=== PATIENT | male | born 1955 | race Caucasian/White ===

== ENCOUNTER 2025-06-12 10:59 | Emergency (ER) | payer MEDICARE, OTHER, SELFPAY ==
[2025-06-12 11:04] VITALS: BP 127/85
[2025-06-12 11:06] VITALS: BP 127/85
[2025-06-12 11:57] LABS: Hematocrit 38.2 % (39.0-52.0); Hemoglobin 12.9 g/dL (13.0-18.0); Mean Corp Hgb Conc. 33.8 g/dL (33.0-37.0); Mean Corpuscular Volume 97.2 fL (80.0-94.0); Nucleated Red Blood Cells % 0 % (-); Platelet Count 245 10^3/uL (130-400); Red Cell Dist. Width 12.8 % (11.5-14.5)
[2025-06-12 12:16] LABS: ALT (SGPT) 26 U/L (0-50); AST (SGOT) 27 U/L (17-59); Albumin 4.6 g/dl (3.5-5.0); Alkaline Phosphatase 75 U/L (38-126); Blood Urea Nitrogen 21 mg/dl (9-20); Calcium 9.5 mg/dl (8.4-10.2); Carbon Dioxide 26 mmol/L (22-30); Chloride 103 mmol/L (98-107); Glucose 117 mg/dl (70-99); Potassium 4.1 mmol/L (3.5-5.1); Sodium 138 mmol/L (135-145); Total Protein 7.2 g/dl (6.3-8.2); eGFR > 60.00
[2025-06-12 12:19] VITALS: BP 130/72
[2025-06-12 12:21] VITALS: BP 144/81
[2025-06-12 13:17] VITALS: BP 171/78
--- NOTE | 2025-06-12 13:51 | ED.GENMED ---
History of Present Illness
General
Chief Complaint: Breathing Problem
Source: patient and ambulance crew
Exam Limitations: none
Time Seen by Provider: 06/12/25 11:08
Nursing documentation reviewed up to this point in time: agreed with
History of Present Illness
History of Present Illness:
69-year-old male with history of depression, substance abuse,'s PTSD, SI, ADHD, TBI, HTN, HLD, hep C, BPH presents via EMS who states they [facility]. Apparently the patient called the [facility] personnel and was on the phone talking
with, sounding confused and agitated so while they were talking to him they called EMS to go to the patient's home to take him to the nearest healthcare facility. EMS states that when they got to his home he was outside waiting, they did not go
into his home. They said he was on the phone with the [facility] complaining about shortness of breath and wanting to come to the VA. VA personnel told them he seems confused
He told EMS he has a roommate/caregiver that left town today to visit someone but should be back tonight.
Patient presents stating he wants to go to the [place] [facility]. When asked about his shortness of breath, he states it's just from anxiety and he is refusing and xray 'I don't need that, I need to get to the [facility].'
He denies chest pain, abd pain, n/v/d/c.
Past History
Past History
ED Past Medical History: HTN, Hypercholesterolemia, Psychiatric, Other (Hep C) and Other (TBI, PTSD, ADHD, depression)
ED Past Surgical History: None
Social History
Tobacco: Non-smoker
Alcohol: None
Drug: None and Other
Personal:
Living: with family
Employment: Employed
Review of Systems
Review of Systems
Allergies reviewed?: Yes
All Other Systems: ROS reviewed and negative except as documented in HPI and ROS
Constitutional: Denies fever
Respiratory: Denies trouble breathing ('It's my anxiety')
Cardiac: Denies chest pain
ABD/GI: Denies abdominal pain, nausea, vomiting, diarrhea or constipated
: Denies dysuria or difficulty voiding
Musculoskeletal: Reports no symptoms
Skin: Reports no symptoms
Neurological: Reports no symptoms
Psychiatric: Reports anxiety; Denies suicidal
Phy Exam
Physical Exam
Physical Exam:
GENERAL: No acute distress. A&Ox3.
CONSTITUTIONAL: Afebrile.
EYES: clear, conjunctivae normal
ENMT: moist mucus membranes, Pharynx nl
RESPIRATORY: Regular respirations, nonlabored, lungs clear.
CARDIOVASCULAR: Regular rate and rhythm, no murmurs, no rubs.
GI: Soft, nontender, normal BS
MUSCULOSKELETAL: Moves with ease. Well perfused.
SKIN: Warm, dry, pink
PSYCH: Anxious, mildly agitated mood and affect. Well kept, interactive, constantly on his phone poking hard trying to reach multiple people associated with the [facility]
NEUROLOGIC: Awake, alert and oriented. No focal neurological deficits
Scores
Heart Failure Risk
Heart Failure Risk Score: Not Applicable
Course
Orders/Labs/Results
Orders:
Orders
06/12/25 11:06
Electrocardiogram (*1) Urgent
Reason for Study: Shortness of Breath
EKG- Treatment ONCE
06/12/25 11:23
Crisis Consult Urgent
Reason for Consult: PTSD, anxiety, confusion
06/12/25 11:39
CMP [Comprehensive Metabolic Panel] Urgent
Complete Blood Count/With Diff Urgent
Abnormal Lab Results
06/12/25
11:39
WBC 4.4 L 10^3/uL
(4.8-10.8)
RBC 3.93 L 10^6/uL
(4.70-6.10)
Hgb 12.9 L g/dL
(13.0-18.0)
Hct 38.2 L %
(39.0-52.0)
MCV 97.2 H fL
(80.0-94.0)
MCH 32.8 H pg
(27.0-31.0)
BUN 21 H mg/dl
(9-20)
Glucose 117 H mg/dl
(70-99)
06/12/25 11:39
06/12/25 11:39
Vital Signs
Initial and Last Documented VS:
Initial Vital Signs
Pulse Resp Pulse Ox
94 18 98
06/12/25 11:01 06/12/25 11:01 06/12/25 11:01
Last Documented Vital Signs
Pulse Resp BP Pulse Ox
83 17 134/84 98
06/12/25 14:15 06/12/25 14:15 06/12/25 14:00 06/12/25 13:53
MDM/Problems Addressed
Differential Diagnosis Includes:
anxiety
MDM/Problems Addressed:
69-year-old male with history of depression, substance abuse,'s PTSD, SI, ADHD, TBI, HTN, HLD, hep C, BPH presents via EMS who states they were [facility] by the [facility]. Apparently the patient called the [facility] personnel and was on the phone talking
with, sounding confused and agitated so while they were talking to him they called EMS to go to the patient's home to take him to the nearest healthcare facility. EMS states that when they got to his home he was outside waiting, they did not go
into his home. They said he was on the phone with the [facility] complaining about shortness of breath and wanting to come to the VA. VA personnel told them he seems confused
He told EMS he has a roommate/caregiver that left town today to visit someone but should be back tonight.
Patient presents stating he wants to go to the [place] [facility]. When asked about his shortness of breath, he states it's just from anxiety and he is refusing and xray 'I don't need that, I need to get to the [facility].' Denies SI.
He denies chest pain, abd pain, n/v/d/c.
CBC, CMP with no clinically significant abnormality.
EKG sinus rhythm with occasional PVCs, heart rate 89
[facility]. He states they cannot provide transportation for him. He will contact their Transfer Dept and have them contact me
Patient evaluated by Latesha from crisis found to be confused, able to go to the [place], he could tell her his meds, was a poor historian, he did not want to talk for any more than he did not want a doctor she states he is not suicidal I have been in to see
the patient numerous times during his stay here, he is constantly on the phone trying to reach somebody from the [place].
And this last time I was in there he was talking to his wounded warrior counselor who said there is nothing he can do for the patient. The main problem seems to be that the patient is adamant about going to the [place] [facility] but does not have a ride.
While his [facility] warrior counselor is on the phone he admits that he knows how to call for an Uber but he wants a ride that he does not have to pay for, I explained to him that he is medically cleared and I am going to discharge him, I will provide
him with the address for the [place] on [facility] in [place], I called there and spoke with someone who said he is welcome to come down there and be seen in their ER.
Never heard back from the Transport Dept.
I spoke with a gentleman from the office of community care who recommended he come to the [place], they cannot provide transportation.
His 24-hour 7-day week caregiver left this morning to go visit someone and will be home tonight. I suggested she give him a ride to the [place] [facility] but he does not want to wait that long. He is mildly agitated but totally alert and oriented and
becoming more demanding. I offered to call him an Uber, he he refused.
I went in the room again to discharge him and he again had his wounded warrior counselor on the phone who was encouraging pt to call Uber
Again, denies feeling suicidal
He knows how to call Uber himself. He is stable for discharge
*Pulse Oximetry
SaO2: 98
Oxygen Mode of Delivery: Room air
Patient hypoxic: no
*Critical Care Note
Total Time (30-74mins, 75-104mins- exclusive of procedures): Not Applicable
ED Attending Note
-
Portions of this chart may have been created with voice recognition software.� Occasional wrong word or��sound alike� substitutions may have occurred due to the inherent limitations of voice recognition software.
Discharge Plan
Departure
Patient Disposition: Home (Routine Discharge)
Date of Disposition: 06/12/25
Time of Disposition: 13:59
Patient with high blood pressure during this ER visit?: No
Condition: Fair
Discharge Problem:
Anxiety
Instructions: Anxiety in adults - ED (DC)
Prescriptions:
No Action
tamsulosin 0.4 MG capsule
0.4 mg PO QPM
albuterol sulfate 1 PUFF HFA aerosol inhaler
2 puff inhalation R Q6HPRN PRN (Reason: shortness of breath)
atorvastatin 40 mg Tablet
40 mg PO QPM
trazodone 50 mg Tablet
50 mg PO HS
trazodone 50 mg Tablet
50 mg PO HSPRN PRN (Reason: sleep)
quetiapine 200 mg Tablet
200 mg PO HS
omeprazole 40 mg Capsule,Delayed Release(Dr/Ec)
40 mg PO DAILY
lorazepam 0.5 mg Tablet
0.25 mg PO DAILY
lorazepam 0.5 mg Tablet
0.5 mg PO HS
valsartan 320 mg Tablet
160 mg PO QPM
Patient Comments:
06/12/2025: Pt states he's been taking 200-210mg due to his blood pressure being in the 'cherelle zone'
carboxymethylcell-glycerin(PF) 0.5-0.9 % Dropperette
1 drp ophthalmic (eye) QIDPRN PRN (Reason: dry eyes)
dextroamphetamine sulfate 15 mg Tablet
60 mg PO DAILY
dupilumab 300 mg/2 mL Syringe
300 mg SC Q2W
Referrals:
Maico Solis MD [Family Provider, Internal Medicine]
Activity Restrictions/Additional Instructions:
As we discussed, I spoke with someone at the office of community care at the [facility] ext [phone] [place] [address] [id number]
They are willing to see you in their [facility]. They cannot provide transportation.
You can wait until your caregiver gets home tonight and she can take you or you can call an Uber now to get a ride.
You are medically cleared to go.
Interventions
Interventions:
*Risk Screen - Suicide Last Done: 06/12/25 11:07
*General Assessment Last Done: 06/12/25 11:07
*Neglect/Abuse Screening Last Done: 06/12/25 11:07
*ED- Fall Risk Assessment Last Done: 06/12/25 11:07
*ED COVID-19 Vaccine History Last Done: 06/12/25 11:07
*ED Influenza Vaccine History Last Done: 06/12/25 11:07
*Nursing Disposition Last Done: 06/12/25 14:42
ED- Cardiac Assessment Last Done: 06/12/25 11:11
ED- Pulmonary Assessment Last Done: 06/12/25 11:11
Discharge Date and Time
Discharge Date/Time: 06/12/25 14:42
Print Language: PAPUA [place]
[2025-06-12 14:00] VITALS: BP 134/84
== END 2025-06-12 14:42 | disposition home or self-care (01) ==
LOC: EMR 10:59
PROVIDERS: Registered Nurse; EMERGENCY PHYSICIAN Emergency Medicine; FAMILY PHYSICIAN Internal Medicine
DX: F41.9 Anxiety disorder, unspecified (principal); F32.A Depression, unspecified; I10 Essential (primary) hypertension; E78.00 Pure hypercholesterolemia, unspecified; Z87.820 Personal history of traumatic brain injury
CPT/HCPCS: 99283; 80053; 85025; 93005

== ENCOUNTER 2025-06-22 23:05 | Emergency (ER) | payer MEDICARE, OTHER, SELFPAY ==
[2025-06-22 23:30] VITALS: BP 121/85
[2025-06-23] MEDS: ATIVAN 1 MG PO (00:56)
[2025-06-23 03:14] LABS: Hematocrit 33.2 % (39.0-52.0); Hemoglobin 11.3 g/dL (13.0-18.0); Mean Corp Hgb Conc. 34.0 g/dL (33.0-37.0); Mean Corpuscular Volume 93.3 fL (80.0-94.0); Nucleated Red Blood Cells % 0 % (-); Platelet Count 235 10^3/uL (130-400); Red Cell Dist. Width 12.6 % (11.5-14.5)
[2025-06-23] MEDS: ATIVAN 0.5 MG PO (03:16)
[2025-06-23 03:28] LABS: ALT (SGPT) 24 U/L (0-50); AST (SGOT) 27 U/L (17-59); Albumin 4.1 g/dl (3.5-5.0); Alkaline Phosphatase 67 U/L (38-126); Blood Urea Nitrogen 21 mg/dl (9-20); Calcium 9.9 mg/dl (8.4-10.2); Carbon Dioxide 30 mmol/L (22-30); Chloride 102 mmol/L (98-107); Glucose 105 mg/dl (70-99); Potassium 4.1 mmol/L (3.5-5.1); Sodium 142 mmol/L (135-145); Total Protein 6.5 g/dl (6.3-8.2); eGFR > 60.00
[2025-06-23] MEDS: TYLENOL 650 MG PO (04:29)
--- NOTE | 2025-06-23 06:35 | ED.GENMED ---
History of Present Illness
<Cuba Cai, DO - Last Filed: 06/23/25 06:42>
General
Chief Complaint: Psychiatric Problem
Source: patient
Exam Limitations: clinical condition (Patient is reluctant to discuss his care.)
Time Seen by Provider: 06/22/25 23:46
Nursing documentation reviewed up to this point in time: agreed with
History of Present Illness
History of Present Illness:
Note:
CHIEF COMPLAINT(S)
The patient presents with anxiety and agitation, requesting medication for these symptoms.
HISTORY OF PRESENT ILLNESS
The patient is a 69-year-old male with a history of anxiety. During the visit, the patient expressed significant distress, stating, 'All I hear is what you cant give me in this freaking house.' The patient has been active, frequently getting out of
bed and expressing a need to use the restroom, frustrated by the lack of a urinal, saying, 'I need to go to the bathroom because you wont give me a freaking urn.' The patient requests to be transferred to a [place] facility, showing a preference for
being admitted to a hospital. The patient mentioned taking lorazepam for anxiety in the past and requested a stronger medication, specifically aripiprazole.
PHYSICAL EXAM
General: The patient is alert and exhibits agitation.
Psychiatric: The patient displays significant anxiety and agitation; requests medication for management.
PROBLEM LIST
Acute Problems:
1. Anxiety and agitation
PLAN
1. Administer a single dose of aripiprazole if the patient remains in bed, as discussed for anxiety management.
2. Continue to ensure the patients safety and address his requests within the constraints of the current facility.
DIFFERENTIAL DIAGNOSIS
The Differential Diagnosis includes, in no particular order and is not limited to:
1. Generalized anxiety disorder/manic episode
2. Panic disorder
3. Adjustment disorder with anxiety
4. Substance-induced anxiety disorder
5. Major depressive disorder with anxious distress
6. Acute stress disorder
7. Hyperthyroidism
8. Delirium
9. Social anxiety disorder
10. Post-traumatic stress disorder (PTSD)
Disposition:
SUMMARY OF ENCOUNTER
A 69-year-old male presented with a manic episode and requested to be transferred to a [place] psychiatric facility. The patient expressed no suicidal or homicidal ideation, intent, or plan. A crisis team evaluated him, and [facility] was [facility] However, the [place] cannot accept admissions over the weekend. A psychiatry consultation was requested for further evaluation.
EMERGENCY TREATMENTS ADMINISTERED
The patient received a dose of lorazepam approximately an hour before being documented as resting comfortably.
MANAGEMENT OF THE PATIENTS CARE WAS DISCUSSED WITH
Consultation with Dr. Delgadillo in psychiatry was requested.
PLAN
Monitor the patients response to lorazepam to ensure comfort and stability. Follow up with psychiatric evaluation and consider options for transfer to [facility] facility after the weekend.
MEDICATION RECONCILIATION
A dose of lorazepam was administered in the emergency department.
MEDICAL DECISION MAKING
-Complexity of Data Reviewed: Chronic conditions affecting care include anxiety. Differential diagnosis includes generalized anxiety disorder, panic disorder, adjustment disorder with anxiety, substance-induced anxiety disorder, major depressive
disorder with anxious distress, acute stress disorder, hyperthyroidism, delirium, social anxiety disorder, and post-traumatic stress disorder (PTSD).
-Data:
Category 3
Discussion of management with Dr. Delgadillo in psychiatry and crisis team evaluation of the patients current status and potential transfer options.
DIAGNOSIS
Anxiety disorder (F41.9)
Past History
<Cuba Cai, DO - Last Filed: 06/23/25 06:42>
Past History
ED Past Medical History: HTN, Hypercholesterolemia, Psychiatric, Other (Hep C) and Other (TBI, PTSD, ADHD, depression)
ED Past Surgical History: None
Social History
Tobacco: Non-smoker
Alcohol: None
Drug: None and Other
Personal:
Living: with family
Employment: Employed
Course
<Cuba Cai, DO - Last Filed: 06/23/25 06:42>
Orders/Labs/Results
Orders:
Orders
06/22/25 23:22
Crisis Consult Urgent
Reason for Consult: manic
06/23/25 00:41
Lorazepam [Ativan] 1 mg PO NOW STA
06/23/25 02:56
EKG [Electrocardiogram (*1)] Urgent
Reason for Study: Other
Other Reason for Exam: needed for placement
EKG- Treatment ONCE
06/23/25 02:57
Alcohol Urgent
Complete Blood Count/With Diff Urgent
Comprehensive Metabolic Panel Urgent
06/23/25 03:15
Lorazepam [Ativan] 0.5 mg .ROUTE .STK-MED ONE
06/23/25 03:16
Lorazepam [Ativan] 0.5 mg PO NOW STA
06/23/25 04:28
Acetaminophen [Tylenol] 650 mg .ROUTE .STK-MED ONE
Acetaminophen [Tylenol] 650 mg PO NOW STA
06/23/25 06:35
Consult Notification Routine
Specialty to Notify: Psychiatry
PSYCHIATRY CONSULT Urgent
Consulting Provider: Wale Roberto
Was physician already notified: No
Reason for consult: manic episode
Abnormal Lab Results
06/23/25
02:57
RBC 3.56 L 10^6/uL
(4.70-6.10)
Hgb 11.3 L g/dL
(13.0-18.0)
Hct 33.2 L %
(39.0-52.0)
MCH 31.7 H pg
(27.0-31.0)
Absolute Monos (auto) 1.0 H 10^3/uL
(0.1-0.6)
Monocytes % 13.7 H %
(1.7-9.3)
BUN 21 H mg/dl
(9-20)
Glucose 105 H mg/dl
(70-99)
06/23/25 02:57
06/23/25 02:57
Vital Signs
Initial and Last Documented VS:
Initial Vital Signs
Temp Pulse Resp BP Pulse Ox
97.9 F 99 18 121/85 98
06/22/25 23:30 06/22/25 23:30 06/22/25 23:30 06/22/25 23:30 06/22/25 23:30
Last Documented Vital Signs
Temp Pulse Resp BP Pulse Ox
97.9 F 99 18 121/85 98
06/22/25 23:30 06/22/25 23:30 06/22/25 23:30 06/22/25 23:30 06/23/25 06:40
<Sugey Valles DO - Last Filed: 06/23/25 09:19>
Orders/Labs/Results
Orders:
Orders
06/22/25 23:22
Crisis Consult Urgent
Reason for Consult: manic
06/23/25 00:41
Lorazepam [Ativan] 1 mg PO NOW STA
06/23/25 02:56
EKG [Electrocardiogram (*1)] Urgent
Reason for Study: Other
Other Reason for Exam: needed for placement
EKG- Treatment ONCE
06/23/25 02:57
Alcohol Urgent
Complete Blood Count/With Diff Urgent
Comprehensive Metabolic Panel Urgent
06/23/25 03:15
Lorazepam [Ativan] 0.5 mg .ROUTE .STK-MED ONE
06/23/25 03:16
Lorazepam [Ativan] 0.5 mg PO NOW STA
06/23/25 04:28
Acetaminophen [Tylenol] 650 mg .ROUTE .STK-MED ONE
Acetaminophen [Tylenol] 650 mg PO NOW STA
06/23/25 06:35
Consult Notification Routine
Specialty to Notify: Psychiatry
PSYCHIATRY CONSULT Urgent
Consulting Provider: Wale Roberto
Was physician already notified: No
Reason for consult: manic episode
Abnormal Lab Results
06/23/25
02:57
RBC 3.56 L 10^6/uL
(4.70-6.10)
Hgb 11.3 L g/dL
(13.0-18.0)
Hct 33.2 L %
(39.0-52.0)
MCH 31.7 H pg
(27.0-31.0)
Absolute Monos (auto) 1.0 H 10^3/uL
(0.1-0.6)
Monocytes % 13.7 H %
(1.7-9.3)
BUN 21 H mg/dl
(9-20)
Glucose 105 H mg/dl
(70-99)
06/23/25 02:57
06/23/25 02:57
Vital Signs
Initial and Last Documented VS:
Initial Vital Signs
Temp Pulse Resp BP Pulse Ox
97.9 F 99 18 121/85 98
06/22/25 23:30 06/22/25 23:30 06/22/25 23:30 06/22/25 23:30 06/22/25 23:30
Last Documented Vital Signs
Temp Pulse Resp BP Pulse Ox
97.9 F 99 18 121/85 98
06/22/25 23:30 06/22/25 23:30 06/22/25 23:30 06/22/25 23:30 06/23/25 06:40
<Cuba Cai, DO - Last Filed: 06/23/25 06:42>
*Pulse Oximetry
SaO2: 98
Oxygen Mode of Delivery: Room air
Patient hypoxic: no
*Critical Care Note
Total Time (30-74mins, 75-104mins- exclusive of procedures): Not Applicable
<Sugey Valles DO - Last Filed: 06/23/25 09:19>
Update Note
Update Note:
Attending signout note (Sugey Valles DO)
07:30 -patient seen and evaluated by evening physician, 69-year-old male with history of anxiety presenting for paranoia and kika. Patient is currently under 201, no indication for 302, hemodynamically stable. Crisis has seen and evaluated
patient initially, [facility], however no [facility] to the [facility] available until tomorrow. Patient without suicidal or homicidal ideations. Pending psychiatric evaluation.
09:00 - Crisis went back to evaluate patient and he would now like to go home which is reasonable. Does not presently appear to be a threat to himself or others. Stable for outpatient
ED Attending Note
<Cuba Cai DO - Last Filed: 06/23/25 06:42>
-
Portions of this chart may have been created with voice recognition software.� Occasional wrong word or��sound alike� substitutions may have occurred due to the inherent limitations of voice recognition software.
Discharge Plan
Departure
Patient Disposition: Psych Facility
Date of Disposition: 06/23/25
Time of Disposition: 06:38
Patient Status:: 201
Condition: Good
Discharge Problem:
Manic episode, Anxiety
Prescriptions:
No Action
tamsulosin 0.4 MG capsule
0.4 mg PO QPM
albuterol sulfate 1 PUFF HFA aerosol inhaler
2 puff inhalation R Q6HPRN PRN (Reason: shortness of breath)
atorvastatin 40 mg Tablet
40 mg PO QPM
trazodone 50 mg Tablet
50 mg PO HS
trazodone 50 mg Tablet
50 mg PO HSPRN PRN (Reason: sleep)
quetiapine 200 mg Tablet
200 mg PO HS
omeprazole 40 mg Capsule,Delayed Release(Dr/Ec)
40 mg PO DAILY
lorazepam 0.5 mg Tablet
0.25 mg PO DAILY
lorazepam 0.5 mg Tablet
0.5 mg PO HS
valsartan 320 mg Tablet
160 mg PO QPM
Patient Comments:
06/12/2025: Pt states he's been taking 200-210mg due to his blood pressure being in the 'cherelle zone'
carboxymethylcell-glycerin(PF) 0.5-0.9 % Dropperette
1 drp ophthalmic (eye) QIDPRN PRN (Reason: dry eyes)
dextroamphetamine sulfate 15 mg Tablet
60 mg PO DAILY
dupilumab 300 mg/2 mL Syringe
300 mg SC Q2W
Referrals:
Maico Solis MD [Family Provider, Internal Medicine]
Interventions
Interventions:
*Risk Screen - Suicide Last Done: 06/22/25 23:15
*General Assessment Last Done: 06/22/25 23:15
*Neglect/Abuse Screening Last Done: 06/22/25 23:15
*ED- Fall Risk Assessment Last Done: 06/22/25 23:15
*ED COVID-19 Vaccine History Last Done: 06/22/25 23:15
*ED Influenza Vaccine History Last Done: 06/22/25 23:15
ED-Psychological Assessment Last Done: 06/22/25 23:15
Discharge Date and Time
Print Language: FAROESE
== END 2025-06-23 10:15 | disposition home or self-care (01) ==
LOC: EMR 23:05
PROVIDERS: CONSULT PHYSICIAN Psychiatry & Neurology Psychiatry; EMERGENCY PHYSICIAN Student in an Organized Health Care Education/Training Program; FAMILY PHYSICIAN Internal Medicine
DX: F30.9 Manic episode, unspecified (principal); F41.9 Anxiety disorder, unspecified; F43.10 Post-traumatic stress disorder, unspecified; F90.9 Attention-deficit hyperactivity disorder, unspecified type; I10 Essential (primary) hypertension; E78.00 Pure hypercholesterolemia, unspecified; B19.20 Unspecified viral hepatitis C without hepatic coma; Z87.820 Personal history of traumatic brain injury
CPT/HCPCS: 99284; 80053; 82077; 85025; 93005